=== PATIENT | male | born 1985 | race Caucasian/White ===

== ENCOUNTER 2016-04-09 12:51 | Emergency (ER) | payer BC, OTHER ==
[2016-04-09 14:27] VITALS: BP 111/79
--- NOTE | 2016-04-09 15:23 | RAD ---
HISTORY: Shortness of breath COMPARISONS: None VIEWS: 2: Frontal dual-energy and lateral views of the chest. FINDINGS: CARDIOMEDIASTINAL SILHOUETTE: The cardiomediastinal silhouette is normal. TYLER: The tyler are normal. PLEURA: The costophrenic angles are sharp. No pleural abnormalities are noted. LUNG PARENCHYMA: The lungs are clear. ABDOMEN: The upper abdomen is clear. There is no subphrenic gas. BONES AND SOFT TISSUES: No bone or soft tissue abnormalities are noted. OTHER: None. IMPRESSION: NO ACTIVE CARDIOPULMONARY DISEASE.
--- NOTE | 2016-04-09 15:25 | UC ---
Cardiac HPI - HPI Summary HPI Summary: for past 6 months, intermittent spells of SOB, heart racing/pounding, shaking, numbness in fingers, light-headedness, vision darkening. Last anywhere from 15 min to all day (low level). No history of heart or lung diseases. Nonsmoker. Works up to 60hrs per week. No weight change. - History of Current Complaint Chief Complaint: UCChestPain Stated Complaint: BACK PAIN Time Seen by Provider: 04/09/16 14:39 Hx Obtained From: Patient Onset/Duration: Gradual Onset, Lasting Weeks Timing: Intermittent Episodes Lasting: - 15 min to hours Initial Severity: Severe Current Severity: None Chest Pain Location: Diffuse Character: Fast, Pounding, Skipped Beats - sometimes, Tightness, Heaviness, Sharp/Stabbing - sometimes Aggravating: Nothing Alleviating: Spontaneous Resolution, Nothing Associated Signs & Symptoms: Positive: Chest Pain, Vision Changes, Anxiety, Numbness, Tingling, Dizziness, SOB, Diaphoresis, Palpitations - Risk Factors Pulmonary Embolism Risk Factors: Negative Cardiac Risk Factors: Negative Atrial Fibrillation: Negative TAD Risk Factors: Negative - Allergy/Home Medications Allergies/Adverse Reactions: Allergies Allergy/AdvReac Type Severity Reaction Status Date / Time No Known Allergies Allergy Verified 04/09/16 14:21 Home Medications: Home Medications Naproxen Sodium [Eql Naproxen Sodium] 660 mg PO ONCE 04/09/16 [History Confirmed 04/09/16] PMH/Surg Hx/FS Hx/Imm Hx Respiratory History Of: Reports: Asthma - JUVENILE - Surgical History Surgical History: Yes Surgery Procedure, Year, and Place: Right Hip and Left Ankle Fractures, 2010, [place]; Appendectomy, 2008, [place]; [place], [place] [facility] [place] - Family History Known Family History: Negative: Cardiac Disease, Respiratory Disease - Social History Occupation: Employed Full-time - lumber yard Lives: With Family Alcohol Use: 2->10 every other day Substance Use Type: None Smoking Status (MU): Heavy Every Day Tobacco Smoker Type: Cigarettes, Smokeless Tobacco Amount Used/How Often: 1/3 PPD and 1 can every 2-3 weeks Have You Smoked in the Last Year: Yes - Immunization History Most Recent Influenza Vaccination: Not the 2016/2016 Season Review of Systems Constitutional: Negative Skin: Negative Eyes: Negative ENT: Negative Respiratory: Shortness Of Breath Cardiovascular: Palpitations, Chest Pain Gastrointestinal: Negative Genitourinary: Negative Motor: Negative Neurovascular: Negative Musculoskeletal: Negative Neurological: Headache, Weakness Psychological: Negative All Other Systems Reviewed And Are Negative: Yes Physical Exam Triage Information Reviewed: Yes Appearance: Well-Appearing, No Pain Distress, Well-Nourished Vital Signs: Initial Vital Signs Temp 98.7 F 04/09/16 14:17 Pulse 66 04/09/16 14:17 Resp 16 04/09/16 14:17 BP 111/79 04/09/16 14:17 Pulse Ox 99 04/09/16 14:17 Vital Signs Reviewed: Yes Eye Exam: Normal ENT Exam: Normal Neck exam: Normal Respiratory Exam: Normal Respiratory: Positive: Lungs clear, Normal breath sounds, No respiratory distress, No accessory muscle use Cardiovascular Exam: Normal Cardiovascular: Positive: RRR Musculoskeletal Exam: Normal Neurological Exam: Normal Psychological Exam: Normal Diagnostics - Laboratory Diagnostic Studies Completed/Ordered: CXR, EKG unremarkable - Differential Diagnoses - Chest Pain Differential Diagnosis/HQI/PQRI: Acute UT, Angina, Lower Respiratory Infection, Pulmonary Edema, Pulmonary Embolism - Clinical Impression Provider Diagnoses: panic attacks Discharge - Discharge Plan Condition: Stable Disposition: HOME Prescriptions: hydrOXYzine HCL TAB* [Atarax TAB*] 50 mg PO QID PRN #60 tab PRN Reason: anxiety/panic attack Patient Education Materials: Panic Attack (ED) Referrals: No Primary Care Phys,NOPCP [Primary Care Provider] -
== END 2016-04-09 15:27 | disposition home or self-care (01) ==
LOC: UCCORT 12:51
DX: F41.0 Panic disorder [episodic paroxysmal anxiety] (principal); F17.200 Nicotine dependence, unspecified, uncomplicated
CPT/HCPCS: 71020; 93005; 99202; G0463